=== PATIENT | female | born 1990 | race Caucasian/White ===

== ENCOUNTER 2021-11-07 10:27 | Emergency (ER) | payer MEDICAID, SELFPAY ==
[2021-11-07 10:29] VITALS: BP 137/95; PULSE 120; RESP 18; TEMP 36.6; O2SAT 100; BMI 26.3
[2021-11-07 10:39] VITALS: BP 137/95; PULSE 117; O2SAT 96
--- NOTE | 2021-11-07 10:49 | PC.NURSE ---
ED MD AT BEDSIDE FOR EVALUATE PT
[2021-11-07 11:00] VITALS: BP 143/76; PULSE 85; O2SAT 96
--- NOTE | 2021-11-07 11:10 | HMH.EDGENADL ---
ED Disposition Clinical Impression: Dental abscess Disposition: Home, Self-Care Condition on Discharge: Good Additional Instructions: Follow-up with your dentist tomorrow as scheduled and please return to the emergency department with fevers, worsening pain, worsening swelling or any other new or concerning symptoms. Please do not take penicillin and please start to take Augmentin instead. Prescriptions: Amoxicillin/Potassium Clav [Amox-Clav 875-125 mg Tablet] 1 tab PO BID #20 tab Referrals: Rut Sanchez [Primary Care Provider] - - Critical Care Critical Care Time: No Attestation: On 11/07/21, the high probability of a clinically significant, sudden or life threatening deterioration of the following system(s) required my full and direct attention, intervention and personal management. The time I documented below is in addition to time spent performing reported procedures but includes the following listed in this critical care notation. Medical Decision Making - Fabián Inquiry Pt receiving controlled substance: No Vital Signs: 11/07/21 10:29 11/07/21 10:39 Temperature 97.9 F Temperature Source Oral Pulse Rate 117 H Pulse Rate [Radial] 120 H Respiratory Rate 18 Blood Pressure 137/95 H Blood Pressure [Right Arm] 137/95 H Blood Pressure Mean [Right Arm] 109 Blood Pressure Source [Right Arm] Automatic Cuff Blood Pressure Position [Right Arm] Sitting 02 Sat by Pulse Oximetry 100 96 Oxygen Delivery Method Room Air Medical Decision Narrative: 31-year-old female presents emergency department with diagnosis of periapical abscess, with gingival abscess today to superior to the right lateral maxillary incisor. 1.2 cm fluctuant collection was aspirated with 18-gauge needle. Patient verbally consented prior to this. Patient successfully tolerated procedure. Patient heart rate improved after patient received 1% lidocaine local block. Patient did not have fever or other signs of systemic infection. Patient given prescription for Augmentin and told to discontinue penicillin. Patient has dental follow-up tomorrow patient was given return precautions for the emergency department. General Adult HPI - General Chief complaint: Dental/Oral Stated complaint: oral/tooth pain Time Seen by Provider: 11/07/21 11:00 Mode of Arrival: Ambulatory Limitations: No Limitations Description of Symptoms (Recalled from ER Triage Doc. by RN): PT REPORTS ABSCESS TO RIGHT UPPER GUM, BEGAN ON MONDAY. SEEN AT [facility] ON MONDAY. STARTED ON ABX. REPORTS INCREASED SWELLING AND PAIN. PT IS 28 WEEKS . - History of Present Illness HPI narrative: 31-year-old female presents emergency department stating that she has an abscess to her right maxillary lateral incisor gingival area. Patient denies fevers vomiting diarrhea chest pain or shortness of breath and states that this started several days ago stating she was seen in the emergency department 2 days ago and placed on oral penicillin. Patient states that now she has an abscess in the area and states that she has dental follow-up first thing in the morning. Patient takes Subutex but has no past medical history, has surgical history of tonsil and adenoid removal, denies allergies to medications, has smoking history denies alcohol, states that 8 years ago was the last time she used IV drugs. Patient has GCS 15 and no other complaints today. - Related Data Previous Rx's Medication Instructions Recorded Amoxicillin/Potassium Clav 1 tab PO BID #20 tab 11/07/21 [Amox-Clav 875-125 mg Tablet] Allergies Allergy/AdvReac Type Severity Reaction Status Date / Time No Known Allergies Allergy Verified 11/07/21 10:44 [facility] History - Hepatitis A Screen Attestation statement:: This patient has been screened for Hepatitis A risk factors. I have reviewed the patient's past medical history: Yes Other Surgeries: Yes: Other (Tonsils and adenoids) ROS Obtained
[2021-11-07 11:30] VITALS: BP 143/76; PULSE 86; RESP 18; TEMP 36.7; O2SAT 98
--- NOTE | 2021-11-07 11:32 | PC.NURSE ---
waiting on ob dr to come see pt
== END 2021-11-07 11:30 | disposition home or self-care (01) ==
PROVIDERS: Emergency Provider Student in an Organized Health Care Education/Training Program; PCP Nurse Practitioner Family
DX: O99.612 Diseases of the digestive system complicating pregnancy, second trimester (principal); K04.7 Periapical abscess without sinus; Z3A.26 26 weeks gestation of pregnancy
CPT/HCPCS: 10160; 99282

== ENCOUNTER 2022-06-16 19:13 | Emergency (ER) | payer MEDICAID, SELFPAY ==
[2022-06-16 19:13] VITALS: BP 120/87; PULSE 89; RESP 17; TEMP 36.7; O2SAT 100; BMI 25.2
--- NOTE | 2022-06-16 19:31 | EXP.UTC ---
Discharge Plan Disposition Patient Disposition: Home, Self-Care Condition: Good Prescriptions Prescriptions: New cephalexin 500 mg capsule 500 mg PO QID Qty: 40 0RF No Action buprenorphine HCl 8 mg tablet, sublingual 8 mg sublingual DAILY Label Comments: DISSOLVE 2 AND 1/4 TABLET UNDER THE TONGUE DAILY Referrals Follow up/Referrals: Rut Sanchez [Primary Care Provider] - See instructions Activity Restrictions/Add. Instructions Additional Instructions/Restrictions: Keep the wound clean and dry. Watch the wound for signs of infection, such as redness, swelling, drainage, fever. etc. Take tylenol or ibuprofen for pain. Follow up your her regular doctor. GO TO THE ER FOR ANY WORSENING SYMPTOMS OR CONCERNS. Clinical Impressions Clinical Impression: Laceration of right index finger Stand Alone Forms Stand Alone Forms: Work/School Release Instructions Patient Instructions: DI for Laceration Repair, DI for Laceration Repair-Skin Glue Discharge ED Provider: Laureano Costello [facility] General Stated complaint: [id number] RT index finger lac Mode of Arrival: Ambulatory Source of Information: Patient Limitations: No Limitations Time Seen by Provider: 06/16/22 19:31 Description of Symptoms (Recalled from Triage Doc. 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 on assessment pt has a small laceration that is not bleeding at this time and well approximate History of Present Illness Provider Complaint: She states that she was using her eddie to cut hair when she slipped and cut herself on her right index finger. Her tetanus immunization is not up to date. Related Data Home Medications Medication Instructions Recorded Confirmed buprenorphine HCl 8 mg sublingual 8 mg sublingual DAILY ALCOHOL 05/04/22 06/16/22 tablet ADDICTION Previous Rx's Medication Instructions Recorded cephalexin 500 mg capsule 500 mg PO QID #40 caps 06/16/22 Allergies Allergy/AdvReac Type Severity Reaction Status Date / Time No Known Allergies Allergy Verified 06/16/22 20:03 [facility] Disclaimer: The information contained in this section may have been updated after the patient was seen, as this information can be updated by other users. Medical History Hepatitis C Insertion of Nexplanon Surgical History History of loop electrical excision procedure (LEEP) History of tonsillectomy and adenoidectomy Hx of wisdom tooth extraction Family History Other Cancer FHx: mental illness Hyperlipidemia Hypertension Social History Smoking Status: Current every day smoker tobacco type: cigarettes alcohol intake: never substance use type: former substance user current occupational status: employed Travel in the last 8 weeks: None ROS Obtained: Yes All systems reviewed & no additional complaints except as documented Constitutional Constitutional: Denies chills and Denies fever(s) Eyes Eyes: Reports system reviewed and no additional complaints, except as documented and Denies eye discharge ENT Ears, Nose, Mouth, and Throat: Denies otalgia and Denies sore throat Cardiovascular Cardiovascular: Denies chest pain Respiratory Respiratory: Denies chest congestion and Denies cough Musculoskeletal Musculoskeletal: Denies joint swelling Integumentary/Breasts Skin/Breast: Reports as per HPI Neurologic Neurologic: Denies paresthesias Physical Exam General General appearance: alert and in no apparent distress Head Head exam: atraumatic, normocephalic and normal inspection Eye Eye exam: Present normal appearance, PERRL and EOMI ENT ENT exam: Present normal exam, normal oropharynx, mucous me
[2022-06-16 19:40] VITALS: BP 120/87; PULSE 89; RESP 17; TEMP 36.7; O2SAT 100; BMI 25.2
[2022-06-16 20:36] VITALS: BP 120/87; PULSE 89; RESP 17; TEMP 36.7; O2SAT 100
== END 2022-06-16 20:36 | disposition home or self-care (01) ==
PROVIDERS: Emergency Provider Nurse Practitioner Family; PCP Nurse Practitioner Family
DX: S61.201A Unspecified open wound of left index finger without damage to nail, initial encounter (principal); F17.210 Nicotine dependence, cigarettes, uncomplicated; W27.2XXA Contact with scissors, initial encounter
CPT/HCPCS: 12001; 90471; 99213; 99214; G0463

== ENCOUNTER 2022-10-30 20:10 | Emergency (ER) | payer MEDICAID, SELFPAY ==
[2022-10-30 20:16] VITALS: BP 132/92; PULSE 77; RESP 18; TEMP 36.7; O2SAT 96; BMI 25.2
--- NOTE | 2022-10-30 20:22 | PC.NURSE ---
pd at bedside. assisted to br. urine collected. waiting on orders.
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
[2022-10-30 20:52] VITALS: BP 132/92; PULSE 77; RESP 18; TEMP 36.7
== END 2022-10-30 21:03 | disposition home or self-care (01) ==
PROVIDERS: Emergency Provider Student in an Organized Health Care Education/Training Program; PCP Nurse Practitioner Family
DX: F10.929 Alcohol use, unspecified with intoxication, unspecified (principal); B19.20 Unspecified viral hepatitis C without hepatic coma
CPT/HCPCS: 99281

== ENCOUNTER 2024-03-12 16:30 | Emergency (ER) | payer MEDICAID, SELFPAY ==
[2024-03-12 16:32] VITALS: BP 113/70; PULSE 87; RESP 16; TEMP 36.6; O2SAT 98; BMI 24.7
[2024-03-12] MEDS: 0.9 % SODIUM CHLORIDE 1000ML 1,000 ML 999 ML IV (17:13)
[2024-03-12] MEDS: KETOROLAC 30MG/ML VIAL 15 MG IV (17:13)
[2024-03-12] MEDS: ONDANSETRON 4MG/2ML VIAL 4 MG IV (17:13)
--- NOTE | 2024-03-12 17:14 | ED_ITS ---
Discharge Plan Disposition Patient Disposition: Home, Self-Care Condition: Good Prescriptions Prescriptions: New ondansetron 4 mg tablet,disintegrating 4 mg PO Q6H PRN (Reason: nausea and vomiting) Qty: 10 0RF No Action valacyclovir 500 mg tablet 500 mg PO DAILY PRN Vraylar 1.5 mg capsule 1.5 mg PO DAILY cetirizine 10 mg tablet 10 mg PO DAILY Qty: 30 5RF dextromethorphan-guaifenesin 60-1,200 mg tablet extended release 12 hr 1 tab PO Q12H Qty: 60 0RF albuterol sulfate 90 mcg/actuation HFA aerosol inhaler 2 puff inhalation Q4-6H PRN (Reason: shortness of breath or wheezing) Qty: 8.5 0RF fluticasone propionate 50 mcg/actuation spray,suspension 1 spray intranasal DAILY Qty: 16 2RF Rx Instructions: administer into each nostril buprenorphine HCl 8 mg tablet, sublingual 8 mg sublingual DAILY Patient Comments: DISSOLVE 2 AND 1/4 TABLET UNDER THE TONGUE DAILY medroxyprogesterone [Depo-Provera] 150 mg/mL suspension 150 mg IM [id number] Qty: 1 0RF Referrals Follow up/Referrals: Rut Sanchez [Primary Care Provider] - See instructions Activity Restrictions/Add. Instructions Additional Instructions/Restrictions: Call your family doctor to establish care for this visit to the emergency department and schedule follow-up within 48 hours to ensure improvement. If you have any worsening of your condition or any other concerning signs or symptoms, return to the emergency department or your primary care doctor for further evaluation. Zofran every 6 hours to stimulate p.o. intake Clinical Impressions Clinical Impression: Vomiting Stand Alone Forms Stand Alone Forms: Work/School Release Instructions Patient Instructions: DI for Nausea -- Adult, DI for Nausea -- Child Print Language Print Language: [place] Discharge ED Provider: Víctor Alfredo General Adult HPI General Chief complaint: Nausea/Vomiting/Diarrhea Stated complaint: back and abd pain vomiting,chills Time Seen by Provider: 03/12/24 16:33 Mode of Arrival: Ambulatory Source of Information: Patient Limitations: No Limitations Description of Symptoms (Recalled from ER Triage Doc. by RN): pt presents to ED with c/o nausea, vomitting, back pain, abdominal pain. pt reports symptoms began this afternoon around 1300. pt reports that entirety of her immediate family has had gi symptoms for the past week. History of Present Illness HPI narrative: Please note that above description of symptoms, in this electronic medical record under categorization of recalled from ER triage doctor by RN are reflective of an initial nursing assessment, however, is not reflective of my full history and physical exam that was personally taken and clarified. Consequentially, this preceding description of symptoms, which may include the patient's categorized chief complaint in the EMR, do not reflect my personal clinical impression, and the ultimate description of history of present illness and patient stated complaints should be deferred to this section of the note. Unless stated otherwise or congruent with this section of the note, additional signs, symptoms, or incongruence should be interpreted as inaccurate with my clinical impression. Related Data Home Medications ?Medication ?Instructions ?Recorded ?Confirmed buprenorphine HCl 8 mg sublingual 8 mg sublingual DAILY ALCOHOL 05/04/22 12/15/23 tablet ADDICTION cariprazine 1.5 mg capsule 1.5 mg PO DAILY 12/14/22 12/15/23 (Vraylar) valacyclovir 500 mg tablet 500 mg PO DAILY PRN 12/14/22 12/15/23 Previous Rx's ?Medication ?Instructions ?Recorded albuterol sulfate 90 mcg/actuation 2 puff inhalation Q4-6H PRN 07/19/23 aerosol inhaler shortness of breath or wheezing #8.5 grams cetirizine 10 mg tablet 10 mg PO DAILY #30 tabs 07/19/23 dextromethorphan-guaifenesin ER 60 1 tab PO Q12H #60 tabs 07/19/23 mg-1,200 mg tab,extend release,12hr fluticasone propionate 50 1 spray intranasal DAILY #16 grams 07/19/23 mcg/actuation nasal spray,suspension medroxyprogesterone 150 mg/mL 150 mg IM [id number] #1 mL 12/15/23 intramuscular suspension (Depo-Provera) ondansetron 4 mg disintegrating 4 mg PO Q6H PRN nausea and 03/12/24 tablet vomiting #10 tabs Allergies Allergy/AdvReac Type Severity Reaction Status Date / Time No Known Allergies Allergy Verified 12/15/23 08:26 [facility] Disclaimer: The information contained in this section may have been updated after the patient was seen, as this information can be updated by other users. Medical History (Updated 03/12/24 @ 18:41 by Víctor Alfredo MD) Allergic rhinitis Decreased libido without sexual dysfunction Hepatitis C Surgical History Hx of wisdom tooth extraction History of tonsillectomy and adenoidectomy History of loop electrical excision procedure (LEEP) Family History Other Cancer FHx: mental illness Hyperlipidemia Hypertension Social History Smoking Status: Current every day smoker tobacco type: cigarettes alcohol intake: never substance use type: former substance user current occupational status: employed Travel in the last 8 weeks: Inside the [place] Other Medical History Have you received the Flu Vaccine for this season: No Have you received the Pneumonia Vaccine: No ROS Obtained: Yes All systems reviewed & no additional complaints except as documented Physical Exam General General appearance: alert Head Head exam: atraumatic and normocephalic Eye Eye exam: Present normal appearance, PERRL and EOMI Neck Neck exam: Present normal inspection, full ROM and trachea midline Respiratory Respiratory exam: Absent respiratory distress, wheezes, stridor, accessory muscle use or prolonged expiratory phase Cardiovascular Cardiovascular exam: Present other (Pulses equal symmetric in upper and lower extremities) Abdominal Exam Abdominal exam: Present soft; Absent distention, tenderness, guarding, rebound, rigidity or pulsatile mass Comment: Subjective tenderness improved with application of pressure Extremities Exam Extremities exam: Absent edema Neurological Exam Neurological exam: Present alert, oriented X3 and CN II-XII intact; Absent motor sensory deficit Skin Skin exam: Present warm and dry; Absent diaphoresis or erythema Medical Decision Making Medical Records Medical records reviewed: Yes I reviewed the patient's medical records. Screening: Per USPSTF and CDC recommendations, given the prevalence of disease in our region, it is our hospital?s policy to screen for HIV and viral Hepatitis for all patients aged 18 and over and those with ongoing risk factors. Fabián Inquiry Pt receiving controlled substance: No Fabián was queried for this patient: No Vital Signs: 03/12/24 16:32 03/12/24 19:18 Temperature 97.8 F 98 F Temperature Source Oral Pulse Rate 84 Pulse Rate [Left Radial] 87 Respiratory Rate 16 16 Blood Pressure 117/74 Blood Pressure [Right Arm] 113/70 Blood Pressure Mean [Right Arm] 84 02 Sat by Pulse Oximetry 98 Oxygen Delivery Method Room Air Lab Data Lab Results 03/12/24 17:09: WBC 8.0, RBC 4.70, Hgb 13.7, Hct 39.8, MCV 84.6, MCH 29.0, MCHC 34.3, RDW 13.8, Plt Count 188, MPV 9.8, Neut % (Auto) 78.3, Lymph % (Auto) 16.9, Eddy % (Auto) 2.4, Eos % (Auto) 2.0, Baso % (Auto) 0.4, Neut # (Auto) 6.3, Lymph # (Auto) 1.4, Eddy # (Auto) 0.2, Eos # (Auto) 0.2, Baso # (Auto) 0.0, Sodium 139, Potassium 3.7, Chloride 109 H, Carbon Dioxide 22, Anion Gap 11.7, BUN 13, C reatinine 0.50 L, Estimated Creat Clear 158, Estimated GFR 144, Est GFR ( Amer) 174, Glucose 85, Calcium 8.8, Magnesium 1.8, Total Bilirubin 0.5, AST 23, ALT 13, Alkaline Phosphatase 43, Total Protein 6.5, Albumin 4.3, Globulin 2.2, A lbumin/Globulin Ratio 2.0 H, Lipase 34, HCG, Quant < 2, HIV 1&2 Antibody Rapid Nonreactive 03/12/24 18:22: Urine Color Yellow, Urine Appearance Clear, Urine pH 6.5, Ur Specific [place] 1.025, Urine Protein Negative, Urine Glucose (UA) Negative, Urine Ketones Negative, Urine Blood Negative, Urine Nitrate Negative, Urine Bilirubin Negative, Urine Urobilinogen 1.0, Ur Leukocyte Esterase Negative, Urine RBC None, Urine WBC 3-5, Ur Squamous Epith Cells 3-5, Urine Bacteria Trace, Urine Mucus 2+ 03/12/24 17:09 03/12/24 17:09 Orders (Tests/Meds): ED MEDICATIONS Discontinued Medications Generic Name Dose Route Start Last Admin Trade Name Freq PRN Reason Stop Dose Admin Sodium Chloride 1,000 mls @ 999 mls/hr 03/12/24 16:47 03/12/24 17:13 Sod Chlor 0.9% 1000ml Bag IV 03/12/24 17:47 999 mls/hr .Q1H1M ONE Administration Ketorolac Tromethamine 15 mg 03/12/24 16:45 03/12/24 17:13 Ketorolac 30mg/Ml Vial IV 03/12/24 16:46 15 mg ONCE ONE Administration Ondansetron HCl 4 mg 03/12/24 16:45 03/12/24 17:13 Ondansetron 4mg/2ml Vial IV 03/12/24 16:46 4 mg ONCE ONE Administration ORDERS Category Date Time Status CBC w/Auto Diff [Complete Blood Count Auto Diff] Stat Lab 03/12/24 17:09 Completed CMP [Comprehensive Metabolic Panel] Stat Lab 03/12/24 17:09 Completed HCG,Quantitative Stat Lab 03/12/24 17:09 Completed HIV (1&2) Antibody Rapid Stat Lab 03/12/24 17:09 Completed Hep C Ab with Reflex to RNA Stat Lab 03/12/24 17:09 Received Lipase Stat Lab 03/12/24 17:09 Completed Magnesium Stat Lab 03/12/24 17:09 Completed UA [Urinalysis and Microscopic] Stat Lab 03/12/24 18:22 Completed Medical Decision Narrative: 33-year-old female no relevant medical history presenting with vomiting, abdominal cramping. Patient states that everyone in her house is sick with some kind of GI illness. Last couple of days, kids as well as fianc? have developed vomiting and diarrheal symptoms. Patient states that around 1 PM today, 1210 just before arrival she started having abdominal cramping and nausea. Went home from work. Started vomiting shortly thereafter. Nonbloody, nonbilious. Not associated with diarrhea. No fevers, cough, congestion, chest pain, shortness of breath, urinary symptoms, or otherwise abnormal history. History was obtained via conversation with patient. On arrival, patient hemodynamically stable, alert, oriented x4, appropriate, GCS 15, moving all extremities spontaneously, pupils equal and reactive to light. Full physical exam performed and significant for well-appearing female no acute distress. Normotensive, nontachycardic. Abdomen soft, nontender, nondistended. Patient's abdomen tenderness is actually improved with application of pressure. No flank tenderness.. Differential includes gastritis, gastroenteritis, PUD, pancreatitis, , UTI, among others. Patient placed on continuous cardiac monitoring and continuous pulse ox with initial blood pressure 113/70, heart rate 87, saturation 98% on room air. Patient was given Zofran for symptomatic management and correction of underlying abnormalities. Workup independently interpreted and significant for nonactionable CBC or chemistry. negative, lipase negative. CT scan of the abdomen and pelvis was considered, but not deemed necessary. Patient has benign labs, benign physical exam, no acute distress. Symptoms controlled with conservative management. On reevaluation, has not vomited here in the emergency department, able to tolerate p.o. Given patient presentation, workup, history, this most likely represents acute gastroenteritis. Because patient at baseline without signs or symptoms of clinical decompensation, deemed appropriate for discharge. Results were relayed to patient who voiced understanding and were agreeable to outpatient management and follow up. I discussed my clinical impression with patient and answered all questions. At this time, the evidence for any other entities in the differential is insufficient to warrant any further testing or ED observation. This was explained as well. Advisory was given that persistent or worsening symptoms require further evaluation. I confirmed the understanding of this discussion. Shuttle Route Vehicle Operator disclaimer Much of this encounter note is an electronic information technology program manager spoken language to printed text. Electronic information technology program manager of the spoken language may permit errors. Although I have reviewed the note, some errors may still exist. Critical Care Critical Care Time Critical Care Time: No
[2024-03-12 17:19] LABS: Basophils % 0.4 % (0.1-2.0); Eosinophils # 0.2 K/mm3 (0.0-0.4); Hematocrit 39.8 % (37.0-47.0); Hemoglobin 13.7 g/dL (12.2-16.2); Lymphocytes # 1.4 K/mm3 (0.7-4.5); Lymphocytes % 16.9 % (10-50); Mean Corpuscular HGB Conc 34.3 g/dL (31.8-35.4); Mean Corpuscular Volume 84.6 fl (81-99); Mean Platelet Volume 9.8 fl (7.4-10.4); Monocytes # 0.2 K/mm3 (0.1-1.0); Monocytes % 2.4 % (1.7-9.3); Neutrophils # 6.3 K/mm3 (1.8-7.8); Neutrophils % 78.3 % (37.0-80.0); Platelet Count 188 K/mm3 (142-424); Red Cell Distribution Width 13.8 % (11.5-17.5)
[2024-03-12 17:57] LABS: Alanine Aminotransferase 13 U/L (12-78); Albumin Level 4.3 g/dl (3.5-5.0); Alkaline Phosphatase 43 U/L (38-126); Anion Gap 11.7 mEq/L (5-15); Aspartate Amino Transferase 23 U/L (14-36); Bilirubin,Total 0.5 mg/dl (0.2-1.3); Blood Urea Nitrogen 13 mg/dl (7-17); Calcium 8.8 mg/dl (8.4-10.2); Carbon Dioxide 22 mmol/L (22.0-30.0); Chloride 109 mmol/L (98-107); Creatinine Clearance Estimated 158 mL/min (50-200); Estimated Glomerular Filt Rate 144 ml/min (>60); GFR (African American) 174 ML/MIN (>60); Globulin 2.2 g/dL (1.3-3.2); Glucose 85 mg/dl (74-100); Lipase 34 U/L (23-300); Magnesium 1.8 mg/dl (1.6-2.3); Potassium 3.7 mmoL/L (3.5-5.1); Sodium 139 mmol/L (136-145); Total Protein,Serum 6.5 g/dl (6.3-8.2)
[2024-03-12 18:14] LABS: HCG,Quantitative < 2 mIU/ml (0-5.42)
[2024-03-12 18:25] LABS: HIV (1&2) Antibody Rapid NONREACTIVE (NONREACTIVE)
[2024-03-12 18:32] LABS: Microscopic, Urine URINE MICROSCOPIC (MICROSCOPIC)
[2024-03-12 19:04] LABS: Appearance,Urine CLEAR (Clear); Bilirubin,Urine Negative (Negative); Blood, Urine Negative (Negative); Glucose,Urine (UA) Negative (Negative); Ketones,Urine Negative (Negative); Leukocyte Esterase,Urine Negative (Negative); Nitrate,Urine Negative (Negative); PH,Urine 6.5 (5.0-8.5); Protein,Urine Negative (Negative); Specific Gravity, Urine 1.025 (1.005-1.030)
[2024-03-12 19:18] VITALS: BP 117/74; PULSE 84; RESP 16; TEMP 36.6; O2SAT 99
[2024-03-12 19:23] LABS: Color,Urine Yellow (Yellow)
[2024-03-12 19:24] LABS: Bacteria,Urine Trace /lpf; Mucus,Urine 2+ /lpf
[2024-03-15 22:07] LABS: HCV Ab Reactive (Non Reactive)
== END 2024-03-12 19:19 | disposition home or self-care (01) ==
PROVIDERS: Emergency Provider Emergency Medicine; PCP Nurse Practitioner Family
DX: R11.2 Nausea with vomiting, unspecified (principal); M54.9 Dorsalgia, unspecified; R10.9 Unspecified abdominal pain
CPT/HCPCS: 80053; 81001; 83690; 83735; 84702; 85025; 86803; 87389; 96361; 96374; 96375; 99283; J1885; J2405; J7030